=== PATIENT | female | born 1995 | race African-American/Black ===

== ENCOUNTER 2019-04-16 16:42 | Emergency (ER) | payer OTHER ==
[~2019-04-16] VITALS: Ht 157.5 cm; Wt 49.0 kg
[2019-04-16] MEDS ORDERED: IBUPROFEN 600MG TABLET PO ONE (20:15)
[2019-04-16] MEDS ORDERED: HYDROCODONE/ACETAMINOPHEN 5/325MG TABLET PO ONE (20:15)
[2019-04-16 22:26] VITALS: BP 127/74
== END 2019-04-16 22:29 | disposition home or self-care (01) ==
LOC: ER 16:54
DX: S70.212A Abrasion, left hip, initial encounter (principal); R07.89 Other chest pain; V43.52XA Car driver injured in collision with other type car in traffic accident, initial encounter; Y93.89 Activity, other specified; Y92.488 Other paved roadways as the place of occurrence of the external cause
CPT/HCPCS: 99283